=== PATIENT | male | born 1940 | race African-American/Black ===

== ENCOUNTER → 2019-01-03 13:05 | Outpatient (CLI) | payer OTHER ==
[2014-11-27 12:43] VITALS: BMI 33.3
[~2019-01-03 13:05] MED LIST: BACLOFEN10 MG PO; BETIMOL15 ML EACH EYE; CATAPRES0.1 MG PO; CHILDREN'S ASPI81 MG PO; COZAAR25 MG PO; FLUTICASONE PRO16 GM NASAL; HYDROCHLOROTH12.5 M1 PO; NORVASC2.5 MG PO; XALATAN 0.0052.5 ML EACH EYE; ZYLOPRIM100 MG PO
== END | disposition home or self-care (01) ==
LOC: D.HCCARDIO 13:05
PROVIDERS: ATTEND Internal Medicine Cardiovascular Disease
DX: I25.10 Atherosclerotic heart disease of native coronary artery without angina pectoris (principal)

== ENCOUNTER → 2019-03-27 13:15 | Outpatient (CLI) | payer OTHER ==
[2014-11-27 12:43] VITALS: BMI 33.3
[2019-03-27 13:52] LABS: HEMATOCRIT 41.5 % (42.0-54.0); HEMOGLOBIN 13.4 g/dL (13.5-17.5); IMMATURE GRANULOCYTES 1.1 % (0-5); MCHC 32.3 g/dL (31.0-37.0); MCV 83.5 fL (80.0-100.0); MEAN PLATELET VOLUME 8.7 fL (7.4-10.4); RBC 4.97 10x6/uL (4.20-6.10); RDW 15.5 % (11.5-14.5); WBC 8.5 10x3/uL (4.8-10.8)
[2019-03-27 13:53] LABS: PLATELET COUNT 656 10x3/uL (130-400)
[2019-03-27 13:59] LABS: % SATURATION 27 % (15-55); IRON 73 ug/dl (35-150); TOTAL IRON BIND CAPACITY 264 ug/dl (260-445); UNSAT IRON BIND CAPACITY 191 ug/dl (150-375)
[2019-03-27 14:19] LABS: ALBUMIN 3.5 g/dL (3.4-5.0); ALKALINE PHOSPHATASE 61 U/L (46-116); ALT (SGPT) 25 U/L (10-68); BASOPHILS 1 % (0-2); BILIRUBIN - TOTAL 0.42 mg/dL (0.2-1.3); CALC OSMOLALITY 262 mosm/kg (275-300); CALCIUM 8.6 mg/dL (8.5-10.1); CARBON DIOXIDE 32.2 mmol/L (21.0-32.0); CHLORIDE - SERUM 100 mmol/L (98-107); CREATININE - SERUM 1.4 mg/dL (0.6-1.3); EOSINOPHILS 3 % (0-7); FERRITIN 100 ng/mL (3-244); GLUCOSE 108 mg/dL (74-106); LYMPHOCYTES 23 % (15-50); MONOCYTES 12 % (2-11); NEUTROPHILS 54 % (40-80); POTASSIUM - SERUM 3.9 mmol/L (3.5-5.1); PROTEIN - SERUM 7.5 g/dL (6.4-8.2); SODIUM 129 mmol/L (136-145); UREA NITROGEN 20 mg/dL (7-18); eGFR NON AFRICAN AMERICAN 52 mL/min (90-120)
== END | disposition home or self-care (01) ==
LOC: D.LAB 13:15
PROVIDERS: ATTEND Internal Medicine Hematology & Oncology
DX: D47.3 Essential (hemorrhagic) thrombocythemia (principal); N18.1 Chronic kidney disease, stage 1; M10.9 Gout, unspecified; I10 Essential (primary) hypertension

== ENCOUNTER 2019-04-24 05:29 | Outpatient (CLI) | payer OTHER ==
[~2019-04-24] VITALS: Ht 172.7 cm; Wt 100.9 kg
[2019-04-24 06:14] LABS: HEMATOCRIT 41.3 % (42.0-54.0); HEMOGLOBIN 13.3 g/dL (13.5-17.5); MCH 27.6 pg (26.0-34.0); MCHC 32.2 g/dL (31.0-37.0); MCV 85.7 fL (80.0-100.0); PLATELET COUNT 702 10x3/uL (130-400); RBC 4.82 10x6/uL (4.20-6.10); RDW 15.1 % (11.5-14.5); WBC 9.7 10x3/uL (4.8-10.8)
[2019-04-24 06:25] LABS: INR 1.15 (0.85-1.17); PROTIME 14.2 SECONDS (11.6-15.0)
[2019-04-24 06:26] LABS: APTT 39.9 SECONDS (22.8-39.4)
[2019-04-24 06:27] LABS: ANION GAP 10.8 mmol/L (8-16); CALCIUM 8.7 mg/dL (8.5-10.1); CARBON DIOXIDE 30.5 mmol/L (21.0-32.0); CREATININE - SERUM 1.6 mg/dL (0.6-1.3); POTASSIUM - SERUM 4.3 mmol/L (3.5-5.1)
[2019-04-24 06:28] VITALS: BP 142/82; Ht 172.7 cm; Wt 100.9 kg
[2019-04-24 10:54] LABS: EOSINOPHILS 1 % (0-7); LYMPHOCYTES 33 % (15-50); MONOCYTES 17 % (2-11); NEUTROPHILS 48 % (40-80); ROULEAUX OCC
[2019-04-24 10:55] LABS: PLATELET ESTIMATE INCREASED
[2019-04-24 10:56] LABS: HYPOCHROMASIA OCC
--- NOTE | 2019-04-24 11:57 | NUR ---
1000 FREQ VS DONE. 1030 INSTRUCTIONS GIVEN TO PT 1045 IV REMOVED 1120 PT D/C HOME
== END 2019-04-24 11:20 | disposition home or self-care (01) ==
LOC: D.SP 05:29 → D.CT 08:00 → D.SP 11:20
PROVIDERS: General Practice; ATTEND Internal Medicine Hematology & Oncology
DX: D47.3 Essential (hemorrhagic) thrombocythemia (principal)